=== PATIENT | male | born 1945 | race Caucasian/White ===

== ENCOUNTER 2022-06-09 19:52 | Emergency (ER) | payer MEDICARE, OTHER ==
[2022-06-09 20:20] VITALS: BP 157/90; PULSE 84; RESP 16; TEMP 98
[2022-06-09] MEDS ORDERED: LIDOCAINE 1% INJ 10MG/ML (20 ML MDV) SQ ONE (21:43)
--- NOTE | 2022-06-09 21:46 | ED ---
Skin/Abscess/FB HPI - General Chief complaint: Skin/Abscess/Foreign Body Stated complaint: fish hook in left ear Time Seen by Provider: 06/09/22 21:40 Source: patient, RN notes reviewed, old records reviewed Mode of arrival: ambulatory Limitations: no limitations - History of Present Illness Initial comments: Well-appearing 76-year-old male patient presents to the emergency room with a fish hook in his left ear for the past 2 hours. Denies any other injuries. States recent tetanus shot 3 years ago. -: hour(s) (2) Location: face (left ear) Severity scale (1-10): 0 Associated symptoms: denies other symptoms - Related Data Allergies Allergy/AdvReac Type Severity Reaction Status Date / Time No Known Allergies Allergy Verified 06/09/22 20:16 Review of Systems ROS Statement: Those systems with pertinent positive or pertinent negative responses have been documented in the HPI. ROS Other: All systems not noted in ROS Statement are negative. Past Medical History Past Medical History: No Reported History History of Any Multi-Drug Resistant Organisms: None Reported Additional Past Surgical History / Comment(s): hemmoroid surgery Past Psychological History: No Psychological Hx Reported Smoking Status: Never smoker Past Alcohol Use History: Occasional Past Drug Use History: None Reported General Exam Limitations: no limitations General appearance: alert, in no apparent distress Head exam: Present: atraumatic, other (Fishing hook left antihelix) Neck exam: Absent: tenderness, meningismus Respiratory exam: Absent: respiratory distress, accessory muscle use Cardiovascular Exam: Present: regular rate Neurological exam: Present: alert, oriented X3, normal gait Psychiatric exam: Present: normal affect, normal mood Skin exam: Present: warm, dry, normal color. Absent: cyanosis, diaphoretic Course Vital Signs 06/09/22 20:17 Temperature 98 F Pulse Rate 84 Respiratory 16 Rate Blood Pressure 157/90 O2 Sat by Pulse 98 Oximetry Procedures - Foreign Body Removal Ear Location: ear canal (L) (left ear helix) Foreign Body Suspected: other (fishing lure) Foreign Body Removed: yes Patient Tolerated Procedure: well Complications: none Medical Decision Making - Medical Decision Making Fish hook was extracted from the patient's left ear with no complications. Patient was directed to wash area twice a day and return with any new or concerning symptoms. Tetanus shot is up-to-date, last given 3 years ago. Patient has no other complaints. Dr. Gramajo at bedside assisted with removal. Disposition Clinical Impression: Fish hook in ear region Disposition: HOME SELF-CARE Condition: Good Instructions (If sedation given, give patient instructions): Acute Wound Care (ED) Additional Instructions: Keep wound clean with warm soapy water twice a day. You can also use Neosporin once a day. Return to the emergency room with any new or concerning symptoms. Is patient prescribed a controlled substance at d/c from ED?: No Referrals: Silas Rivas MD [Primary Care Provider] - 1-2 days Time of Disposition: 22:13
== END 2022-06-09 22:20 | disposition home or self-care (01) ==
LOC: EC 19:52
DX: S00.452A Superficial foreign body of left ear, initial encounter (principal); W45.8XXA Other foreign body or object entering through skin, initial encounter
CPT/HCPCS: 69200; 99282; J2001

== ENCOUNTER → 2023-01-20 | Outpatient (CLI) | payer MEDICARE, OTHER ==
--- NOTE | 2023-01-20 12:04 | CT ---
EXAMINATION TYPE: CT urogram wo/w con DATE OF EXAM: 01/20/2023 COMPARISON: None HISTORY: Gross Hematuria CT DLP: 2571.8 mGycm CONTRAST: Performed and without and with IV Contrast, patient injected with 100 ml mL of Isovue 300. CT Urography was performed with unenhanced followed by enhanced images of the kidneys, ureters and ur inary bladder. Delayed images were obtained. 3d reconstruction was performed at a separate work sta tion. FINDINGS: KIDNEYS/BLADDER: There is extrarenal pelvis noted bilaterally with normal caliber ureters. No right r enal masses seen. Distention of the urinary bladder measuring 12.5 x 10.0 x 9.8 cm. Left-sided urinar y bladder diverticulum noted measuring 4.9 x 2.0 cm. No nephrolithiasis. Exophytic hypoattenuating lesion midpole left kidney measures 2.1 cm with average Hounsfield unit of less than 25 and compatibl e with a cyst. There is also a 1.5 cm cortical cyst mid pole left kidney posterior cortex. Urinary bl adder grossly unremarkable. No urinary bladder wall thickening identified at this time. LUNG BASES-: No visible nodule. No infiltrate. Is evidence of small fixed hiatal hernia. LIVER/GB: No calcified gallstones. No space occupying hepatic lesion. Biliary tree is of normal ca liber. PANCREAS: No inflammation. No distinct mass. SPLEEN: No splenic enlargement. No lesion seen. ADRENALS: No nodule. No thickening. BOWEL: Normal appendix. Normal bowel caliber. No inflammation. GENITAL ORGANS: Moderate enlargement of the prostate gland may be resulting in bladder outlet obstruc tion. Correlate clinically. LYMPH NODES: No greater than 1cm abdominal or pelvic lymph nodes are appreciated. AORTA: No significant abnormality. OSSEOUS STRUCTURES: No significant abnormality is seen. OTHER: No significant additional abnormality is seen. IMPRESSION: 1. Simple renal cysts noted bilaterally. 2. Distention of the urinary bladder could be related to bladder outlet obstruction. 3. Fixed hiatal hernia.
== END | disposition home or self-care (01) ==
LOC: RADCTMAIN 09:41
PROVIDERS: ATTEND Urology
DX: N28.1 Cyst of kidney, acquired (principal); K44.9 Diaphragmatic hernia without obstruction or gangrene; N32.89 Other specified disorders of bladder
CPT/HCPCS: 82565; 84520; 74178; 36415; 74400; Q9967

== ENCOUNTER 2023-04-06 03:11 | Emergency (ER) | payer OTHER ==
[2023-04-06 03:24] VITALS: RESP 18
--- NOTE | 2023-04-06 04:14 | ED ---
Male Urogenital HPI - General Chief complaint: Urogenital Stated complaint: Urinating blood,Abd pain Time Seen by Provider: 04/06/23 03:41 Source: patient, RN notes reviewed, old records reviewed Mode of arrival: ambulatory Limitations: no limitations - History of Present Illness Initial comments: This is a 77-year-old male to the emergency department today and he presents for evaluation patient has severe abdominal pain. Recent states is having hematuria blood in this urine and has severe abdominal pain and unable to urinate. Patient recently a Yung catheter placed after urological procedure for prostate. MD Complaint: dysuria (Hematuria) -: hour(s) Location: abdomen Severity: severe Severity scale (1-10): 10 Quality: sharp Consistency: constant Improves with: none Worsens with: none recent surgery Reports: urinary retention, blood in urine - Related Data Allergies Allergy/AdvReac Type Severity Reaction Status Date / Time No Known Allergies Allergy Verified 04/07/23 14:14 Review of Systems ROS Statement: Those systems with pertinent positive or pertinent negative responses have been documented in the HPI. ROS Other: All systems not noted in ROS Statement are negative. Past Medical History Past Medical History: Prostate Disorder History of Any Multi-Drug Resistant Organisms: None Reported Additional Past Surgical History / Comment(s): hemmoroid surgery, Prostate surgery Past Psychological History: No Psychological Hx Reported Smoking Status: Never smoker Past Alcohol Use History: Occasional Past Drug Use History: None Reported General Exam Limitations: no limitations General appearance: alert, anxious, in distress Head exam: Present: atraumatic, normocephalic, normal inspection Eye exam: Present: normal appearance, PERRL, EOMI. Absent: scleral icterus, conjunctival injection, periorbital swelling ENT exam: Present: normal exam, mucous membranes moist Neck exam: Present: normal inspection. Absent: tenderness, meningismus, lymphadenopathy Respiratory exam: Present: normal lung sounds bilaterally. Absent: respiratory distress, wheezes, rales, rhonchi, stridor Cardiovascular Exam: Present: regular rate, normal rhythm, normal heart sounds. Absent: systolic murmur, diastolic murmur, rubs, gallop, clicks GI/Abdominal exam: Present: soft, normal bowel sounds. Absent: distended, tenderness, guarding, rebound, rigid Extremities exam: Present: normal inspection, full ROM, normal capillary refill. Absent: tenderness, pedal edema, joint swelling, calf tenderness Back exam: Present: normal inspection Neurological exam: Present: alert, oriented X3, CN II-XII intact Psychiatric exam: Present: normal affect, normal mood Skin exam: Present: warm, dry, intact, normal color. Absent: rash Course Vital Signs 04/06/23 04/06/23 03:20 06:30 Temperature 97.8 F 98.4 F Pulse Rate 98 72 Respiratory 18 18 Rate Blood Pressure 161/96 128/69 O2 Sat by Pulse 98 98 Oximetry - Reevaluation(s) Reevaluation #1: 04/06/23 04:14 Attic record is reviewed Reevaluation #2: Patient symptoms are dramatically improved after Yung placement Reevaluation #3: Patient informed results and questions answered Reevaluation #4: 04/06/23 05:33 Was pt. sent in by a medical professional or institution? @ -no Did you speak to anyone other than the patient for history? @ -no Did you review nursing and triage notes? @ -agree Were old charts reviewed? @ -yes Differential Diagnosis? @ -prior EKG interpreted by me (3pts min.)? @ -no X-rays interpreted by me (1pt min.)? @ -no CT interpreted by me (1pt min.)? @ -no U/S interpreted by me (1pt. min.)? @ -no What testing was considered but not performed? (CT, X-rays, U/S, labs)? Why? @ -no What meds were considered but not given? Why? @ -no Did you discuss the management of the patient with other professionals? @ -no Did you reconcile home meds? @ -no Was smoking cessation discussed for >3mins.? @ -no Was critical care preformed (if so, how long)? @ -no Were there social determinants of health that impacted care today? How? (Homelessness, low income, unemployed, alcoholism, drug addiction, transportation, low edu. Level, literacy, decrease access to med. care, senior care, rehab)? @ -no Was there de-escalation of care discussed even if they declined? (Discuss DNR or withdrawal of care, Hospice)? @ -no What co-morbidities impacted this encounter? (DM, HTN, Smoking, COPD, CAD, Cancer, CVA, Hep., AIDS, mental health diagnosis, sleep apnea, morbid obesity)? @ -none Was patient admitted / discharged? @ -77 male to the emergency department today he presents for hematuria and for evaluation of significant urinary retention. Yung is placed patient has relief and can be discharged home Discharge Undiagnosed new problem with uncertain prognosis? @ -no Drug Therapy requiring intensive monitoring for toxicity (Heparin, Nitro, Insulin, Cardizem)? @ -no Were any procedures done? @ -no Diagnosis/symptom? @ -Hematuria with urinary retention Acute, or Chronic, or Acute on Chronic? @ -acute Uncomplicated (without systemic symptoms) or Complicated (systemic symptoms)? @ -complicated Side effects of treatment? @ -no Exacerbation, Progression, or Severe Exacerbation] @ -no Poses a threat to life or bodily function? @ -no Medical Decision Making - Medical Decision Making 77 male to the emergency department today he presents for hematuria and for evaluation of significant urinary retention. Yung is placed patient has relief and can be discharged home Disposition Clinical Impression: Urinary retention, Hematuria Disposition: HOME SELF-CARE Condition: Good Instructions (If sedation given, give patient instructions): Urinary Retention in Men (ED), Hematuria (ED) Is patient prescribed a controlled substance at d/c from ED?: No Referrals: Adria Mccabe MD [STAFF PHYSICIAN] - 1-2 days
[2023-04-06] MEDS ORDERED: LIDOCAINE 2% URO-JET JELLY 5 ML KIT URETHRAL ONE (04:25)
[2023-04-06 06:31] VITALS: BP 128/69; PULSE 72; TEMP 98.4
== END 2023-04-06 06:31 | disposition home or self-care (01) ==
LOC: EC 03:11
DX: R31.9 Hematuria, unspecified (principal); R33.9 Retention of urine, unspecified
CPT/HCPCS: 51702; 99284

== ENCOUNTER 2023-04-07 14:05 | Emergency (ER) | payer OTHER ==
--- NOTE | 2023-04-07 14:56 | ED ---
Male Urogenital HPI - General Chief complaint: Urogenital Stated complaint: catheter issue Time Seen by Provider: 04/07/23 14:22 Source: patient, RN notes reviewed, old records reviewed Mode of arrival: ambulatory Limitations: no limitations - History of Present Illness Initial comments: 37 show male presents emergency Department chief complaint Matthew catheter issue. Patient states that he had a Matthew catheter exchange states his been aching ever since. He denies any pain associated. He states that he is filling up with urine blood but states that he has urine leaking around the catheter. Patient denies any fevers or chills no flank pain no other associated symptoms. - Related Data Allergies Allergy/AdvReac Type Severity Reaction Status Date / Time No Known Allergies Allergy Verified 04/07/23 14:14 Review of Systems ROS Statement: Those systems with pertinent positive or pertinent negative responses have been documented in the HPI. ROS Other: All systems not noted in ROS Statement are negative. Past Medical History Past Medical History: Prostate Disorder History of Any Multi-Drug Resistant Organisms: None Reported Additional Past Surgical History / Comment(s): hemmoroid surgery, Prostate surgery Past Psychological History: No Psychological Hx Reported Smoking Status: Never smoker Past Alcohol Use History: Occasional Past Drug Use History: None Reported General Exam Limitations: no limitations General appearance: alert, in no apparent distress Head exam: Present: atraumatic, normocephalic, normal inspection Respiratory exam: Present: normal lung sounds bilaterally. Absent: respiratory distress, wheezes, rales, rhonchi, stridor Cardiovascular Exam: Present: regular rate, normal rhythm, normal heart sounds. Absent: systolic murmur, diastolic murmur, rubs, gallop, clicks GI/Abdominal exam: Present: soft, normal bowel sounds. Absent: distended, tend erness, guarding, rebound, rigid Back exam: Absent: CVA tenderness (R), CVA tenderness (L) Course Vital Signs 04/07/23 14:11 Temperature 98.0 F Pulse Rate 74 Respiratory 20 Rate Blood Pressure 121/65 O2 Sat by Pulse 98 Oximetry Medical Decision Making - Medical Decision Making Was pt. sent in by a medical professional or institution (, PA, [employer], urgent care, hospital, or [facility]...) When possible be specific @ -No Did you speak to anyone other than the patient for history (EMS, parent, family, police, friend...)? What history was obtained from this source @ -No Did you review nursing and triage notes (agree or disagree)? Why? @ -I reviewed and agree with nursing and triage notes Were old charts reviewed (outside hosp., previous admission, EMS record, old EKG, old radiological studies, urgent care reports/EKG's, [facility] records)? Report findings @ -yesterday reviewed recent ER studies, Matthew placement Differential Diagnosis (chest pain, altered mental status, abdominal pain women, abdominal pain men, vaginal bleeding, weakness, fever, dyspnea, syncope, he adache, dizziness, GI bleed, back pain, seizure, CVA, palpatations, mental health, musculoskeletal)? @ -matthew complication, hematuria, urinary retention] EKG interpreted by me (3pts min.). @ -none X-rays interpreted by me (1pt min.). @ -None done CT interpreted by me (1pt min.). @ -None done U/S interpreted by me (1pt. min.). @ -None done What testing was considered but not performed or refused? (CT, X-rays, U/S, labs)? Why? @ -None What meds were considered but not given or refused? Why? @ -None Did you discuss the management of the patient with other professionals (professionals i.e. , PA, [employer], lab, RT, psych nurse, manager social responsibility, director digital sales, teacher, department of natural resources officer, heel caser)? Give summary @ -No Was smoking cessation discussed for >3mins.? @ -No Was critical care preformed (if so, how long)? @ -No Were there social determinants of health that impacted care today? How? (Homelessness, low income, unemployed, alcoholism, drug addiction, transportation, low edu. Level, literacy, decrease access to med. care, correction, rehab)? @ -No Was there de-escalation of care discussed even if they declined (Discuss DNR or withdrawal of care, Hospice)? DNR status @ -No What co-morbidities impacted this encounter? (DM, HTN, Smoking, COPD, CAD, Cancer, CVA, ARF, Chemo, Hep., AIDS, mental health diagnosis, sleep apnea, morbid obesity)? @ -None Was patient admitted / discharged? Hospital course, mention meds given and route, prescriptions, significant lab abnormalities, going to OR and other pertinent info. @ -Matthew catheter was replaced with no complications patient discharged in stable condition. Undiagnosed new problem with uncertain prognosis? @ -No Drug Therapy requiring intensive monitoring for toxicity (Heparin, Nitro, Insulin, Cardizem)? @ -No Were any procedures done? @ -No Diagnosis/symptom? @ -Matthew catheter complication Acute, or Chronic, or Acute on Chronic? @ -Acute Uncomplicated (without systemic symptoms) or Complicated (systemic symptoms)? @ -Uncomplicated Side effects of treatment? @ -No Exacerbation, Progression, or Severe Exacerbation? @ -No Poses a threat to life or bodily function? How? (Chest pain, [place], [place], pneumonia, PE, COPD, DKA, ARF, appy, cholecystitis, CVA, Diverticulitis, Homicidal, Suicidal, threat to staff... and all critical care pts) @ -No Disposition Clinical Impression: Complication of Matthew catheter Disposition: HOME SELF-CARE Condition: Stable Instructions (If sedation given, give patient instructions): Matthew Catheter Placement and Care (ED) Additional Instructions: Please return to the Emergency Department if symptoms worsen or any other concerns. Is patient prescribed a controlled substance at d/c from ED?: No Referrals: Silas Rivas MD [Primary Care Provider] - 1-2 days Time of Disposition: 15:52
[2023-04-07] MEDS ORDERED: LIDOCAINE 2% URO-JET JELLY 5 ML KIT URETHRAL ONE ×2 (15:23→15:26)
[2023-04-07 17:25] VITALS: BP 146/84; PULSE 82; RESP 18; TEMP 98.2
== END 2023-04-07 17:20 | disposition home or self-care (01) ==
LOC: EC 14:05
DX: T83.098A Other mechanical complication of other urinary catheter, initial encounter (principal)
CPT/HCPCS: 51702; 99284

== ENCOUNTER 2023-09-05 14:37 | Emergency (ER) | payer OTHER ==
--- NOTE | 2023-09-05 14:41 | ED ---
General Adult HPI - General Source: patient, RN notes reviewed Mode of arrival: ambulatory Limitations: no limitations <Pancho Gan - Last Filed: 09/05/23 14:40> - General Source: patient, RN notes reviewed <Kaya Gage - Last Filed: 09/05/23 16:57> - General Stated complaint: sliver in finger bp raised Time Seen by Provider: 09/05/23 14:40 - History of Present Illness Initial comments: 78-year-old male presents emergency Department chief complaint of foreign body right hand second digit. Patient was sent from urgent care as his blood pressure was elevated 196/100. (Pancho Gan) Patient is a 78-year-old male presented ER with chief complaint of foreign body in his right index finger. Patient states he was trying to be seen at urgent care but his blood pressure was 196/100 and they sent him here for evaluation. Patient states he was working with was this weekend when he got a sliver in his right index finger. He states he soaked it in Epsom salts and is tried to remove it but was unsuccessful. He denies any fevers or chills. Patient states he normally takes metoprolol for his blood pressure and it is normally around 150 systolic. Patient denies any current headaches, double or blurry vision or chest pain. (Kaya Gage) - Related Data Previous Rx's Medication Instructions Recorded Cephalexin [Keflex] 250 mg PO Q6HR #20 cap 09/05/23 Allergies Allergy/AdvReac Type Severity Reaction Status Date / Time No Known Allergies Allergy Verified 04/07/23 14:14 Review of Systems ROS Other: All systems not noted in ROS Statement are negative. <Pancho Gan - Last Filed: 09/05/23 14:40> ROS Other: All systems not noted in ROS Statement are negative. <Kaya Gage - Last Filed: 09/05/23 16:57> ROS Statement: Those systems with pertinent positive or pertinent negative responses have been documented in the HPI. Past Medical History Past Medical History: Prostate Disorder History of Any Multi-Drug Resistant Organisms: None Reported Additional Past Surgical History / Comment(s): hemmoroid surgery, Prostate surgery Past Psychological History: No Psychological Hx Reported Smoking Status: Never smoker Past Alcohol Use History: Occasional Past Drug Use History: None Reported <Pancho Gan - Last Filed: 09/05/23 14:40> General Exam <Pancho Gan - Last Filed: 09/05/23 14:40> General appearance: alert, in no apparent distress Head exam: Present: atraumatic, normocephalic, normal inspection Respiratory exam: Present: normal lung sounds bilaterally. Absent: respiratory distress, wheezes, rales, rhonchi, stridor Cardiovascular Exam: Present: regular rate, normal rhythm, normal heart sounds. Absent: systolic murmur, diastolic murmur, rubs, gallop, clicks Extremities exam: Present: other (Right second digit has a 1.5 cm scab noted distal to DIP joint. There is 2+ right radial pulse. The finger is edematous and has erythema to the MCP joint. Limited range of motion due to swelling and pain.) Neurological exam: Present: alert, oriented X3, CN II-XII intact Psychiatric exam: Present: normal affect, normal mood Skin exam: Present: warm, dry, intact, normal color. Absent: rash <Kaya Gage - Last Filed: 09/05/23 16:57> - General Exam Comments Initial Comments: Visual Physical Exam Vital signs reviewed General: Well-appearing, nontoxic, no acute distress. Head: Normocephalic, atraumatic Eyes: PERRLA, EOMI ENT: Airway patent Chest: Nonlabored breathing Skin: No visual rash, normal skin tone Neuro: Alert and oriented 3 Musculoskeletal: No gross abnormalities (Pancho Gan) Course Vital Signs 09/05/23 09/05/23 09/05/23 14:40 15:57 16:33 Temperature 97.5 F L Pulse Rate 68 60 60 Respiratory 20 Rate Blood Pressure 203/88 189/92 170/90 O2 Sat by Pulse 98 Oximetry Procedures - Forgein Body Removal Soft Tissue Consent Obtained: verbal consent Site: other (figner) Foreign Body Suspected: Wood Foreign Body Removed: yes Foreign Body Removal Technique: Forceps Patient Tolerated Procedure: well, no complications <Kaya Gage - Last Filed: 09/05/23 16:57> Medical Decision Making <Pancho Gan - Last Filed: 09/05/23 14:40> - Radiology Data Radiology results: report reviewed, image reviewed <Kaya Gage - Last Filed: 09/05/23 16:57> - Medical Decision Making I completed the quick note portion of this chart signed Pancho Gan PA-C (Pancho Gan) Was pt. sent in by a medical professional or institution (BALAJI Peres, SALES ENGINEERING MANAGER, urgent care, hospital, or [facility]...) When possible be specific @ -No Did you speak to anyone other than the patient for history (EMS, parent, family, police, friend...)? What history was obtained from this source @ -No Did you review nursing and triage notes (agree or disagree)? Why? @ -I reviewed and agree with nursing and triage notes Were old charts reviewed (outside hosp., previous admission, EMS record, old EKG, old radiological studies, urgent care reports/EKG's, [facility] records)? Report findings @ -No old charts were reviewed Differential Diagnosis (chest pain, altered mental status, abdominal pain women, abdominal pain men, vaginal bleeding, weakness, fever, dyspnea, syncope, headache, dizziness, GI bleed, back pain, seizure, CVA, palpatations, mental health, musculoskeletal)? @ -Differential Musculoskeletal: Muscular strain, contusion, ligament sprain, fracture, arthritis, septic arthritis, bursitis, cellulitis, muscle spasm, nerve compression, DVT, arterial occlusion, herpes zoster, electrolyte abnormality, tumor.... This is not meant to be in all inclusive list EKG interpreted by me (3pts min.). @ -None X-rays interpreted by me (1pt min.). @ -Right finger x-ray shows no acute fractures, dislocations or foreign bodies. CT interpreted by me (1pt min.). @ -None done U/S interpreted by me (1pt. min.). @ -None done What testing was considered but not performed or refused? (CT, X-rays, U/S, labs)? Why? @ -None What meds were considered but not given or refused? Why? @ -None Did you discuss the management of the patient with other professionals (professionals i.e. BALAJI Peres, SALES ENGINEERING MANAGER, lab, RT, psych nurse, manager social responsibility, type inspector, teacher, facility security officer, manager of case management)? Give summary @ -No Was smoking cessation discussed for >3mins.? @ -No Was critical care preformed (if so, how long)? @ -No Were there social determinants of health that impacted care today? How? (Homeles sness, low income, unemployed, alcoholism, drug addiction, transportation, low edu. Level, literacy, decrease access to med. care, shelter, rehab)? @ -No Was there de-escalation of care discussed even if they declined (Discuss DNR or withdrawal of care, Hospice)? DNR status @ -No What co-morbidities impacted this encounter? (DM, HTN, Smoking, COPD, CAD, Cancer, CVA, ARF, Chemo, Hep., AIDS, mental health diagnosis, sleep apnea, morbid obesity)? @ -Hypertension Was patient admitted / discharged? Hospital course, mention meds given and route, prescriptions, significant lab abnormalities, going to OR and other pertinent info. @ -Discharge. Patient's blood pressure upon arrival to the ER was 203/88. Patient's right second finger was erythematous and edematous with a 1.5 cm scab distal to DIP joint. Xray of right finger does not show any acute fracture, dislocations or foreign bodies. I attempted to remove the splinter and was successful without any complications. I noted purulent drainage from wound while removing splinter. Patient will be prescribed Keflex at discharge. Upon reevaluation patient's blood pressure was 170/90.Patient reports he takes Metoprolol for BP control and his last dose was the morning. I advised the patient to monitor his BP at home and to follow-up with his PCP in the next 1-2 days for BP check. Return parameters were discussed. Patient expressed understanding and agreement with care plan. Undiagnosed new problem with uncertain prognosis? @ -No Drug Therapy requiring intensive monitoring for toxicity (Heparin, Nitro, Insulin, Cardizem)? @ -No Were any procedures done? @ -Yes Diagnosis/symptom? @ -Superficial foreign body Acute, or Chronic, or Acute on Chronic? @ -Acute Uncomplicated (without systemic symptoms) or Complicated (systemic symptoms)? @ -Uncomplicated Side effects of treatment? @ -No Exacerbation, Progression, or Severe Exacerbation? @ -No Poses a threat to life or bodily function? How? (Chest pain, [place], [place], pneumonia, PE, COPD, DKA, ARF, appy, cholecystitis, CVA, Diverticulitis, Homicidal, Suicidal, threat to staff... and all critical care pts) @ -No (Kaya Gage) Disposition <Pancho Gan - Last Filed: 09/05/23 14:40> Is patient prescribed a controlled substance at d/c from ED?: No Time of Disposition: 16:31 <Kaya Gage - Last Filed: 09/05/23 16:57> Clinical Impression: Superficial foreign body (sliver) Disposition: HOME SELF-CARE Condition: Stable Additional Instructions: Please return to the Emergency Department if symptoms worsen or any other concerns. Please complete full course of antibiotics. Prescriptions: Cephalexin [Keflex] 250 mg PO Q6HR #20 cap Referrals: Silas Rivas MD [Primary Care Provider] - 1-2 days
[2023-09-05 15:00] VITALS: RESP 20; TEMP 97.5
--- NOTE | 2023-09-05 15:16 | XR ---
EXAMINATION TYPE: XR finger RT DATE OF EXAM: 09/05/2023 COMPARISON: NONE HISTORY: Possible wood chips second digit TECHNIQUE: Three views are submitted. FINDINGS: The osseous structures are intact. Mild DIP joint arthropathy. There is no acute fracture or dislocat ion. No radiopaque foreign body. IMPRESSION: 1. No definite radiopaque foreign body.
[2023-09-05 16:01] VITALS: PULSE 60
[2023-09-05 16:58] VITALS: BP 170/90
== END 2023-09-05 18:27 | disposition home or self-care (01) ==
LOC: EC 14:37
DX: S60.450A Superficial foreign body of right index finger, initial encounter (principal); W45.8XXA Other foreign body or object entering through skin, initial encounter
CPT/HCPCS: 99283